=== PATIENT | female | born 1990 | race Hispanic/Latino ===

== ENCOUNTER 2018-03-17 14:44 | Inpatient (IN) | payer MEDICAID, SELFPAY ==
--- NOTE | 2018-03-17 16:40 | P.TNLD_ITS ---
Visit Information Visit Information Date of evaluation: 03/17/18 Primary OB Provider: Doris Higgins Reason for Evaluation: Yes non-stress test non-stress test reason: decreased movement Vital Signs Vital Signs: Blood pressure 122/67, pulse 88 Review of Systems Review of Systems Patient came in complaining decreased movement and vaginal bleeding. Patient denies contractions. She denies headaches, scotomata. She denies any leakage of fluid. All systems reviewed & are unremarkable except as noted in HPI and below Exam Narrative Exam Narrative: Patient's abdomen is soft, nontender. Infant is vertex. Cervical exam is 5 cm dilated. Extremities without edema and nontender Evaluation Evaluation Baseline heart rate: 130 Variability: Moderate (11-25) monitor accelerations: Present monitor decelerations: Absent Contraction Frequency (minutes): 0 Cervical dilation (cm): 5 Cervical effacement (%): 90 station: -2 Diagnosis, Plan/Disposition Final Diagnosis (1) 39 weeks gestation of : Current Visit: Yes Status: Acute Plan/Disposition Plan: NST is reactive so patient is reassured about the decreased movement. However the patient is significantly dilated despite denying contractions. She lives on [address] so is some distance from the hospital. Patient was asked to walk for several hours and come back to be checked to see if there is any change in her cervix OB Disposition: other
--- NOTE | 2018-03-17 19:31 | PM.OBHP.1 ---
OB HPI Date/Time Date of admission: 03/17/18 Date Patient Seen: 03/17/18 Time Patient Seen: 19:32 History of Present Condition Chief complaint: OBS : 1 Para: 0 Estimated Date of Delivery: 03/20/18 Estimated Gestational Age (weeks): 39 Narrative: Malgorzata Gibbs is a 27 year old female admitted in labor History of Present care: limited care (Ultrasound at 22 weeks, 2 OB appointments here), number of visits (2) and pounds weight gain (30) Dating criteria: LMP confirmed by 2nd trimester US Ultrasounds: normal mid trimester US Obstetrical complications: none Medical complications: none Preadmission Labs Blood type: O (+) positive -: Antibody screen: negative, GBS status: negative, HBsAG: negative, HIV: negative and RPR/VDLR: negative -: Rubella: immune 1 hr GTT: 85 Evaluation Evaluation Baseline heart rate: 130 Variability: Moderate (11-25) monitor accelerations: Present monitor decelerations: Absent Uterine Contraction Intensity: Mild Category of Tracing: I Cervical dilation (cm): 6 Cervical effacement (%): 75 station: -2 Review of Systems Review of Systems Patient denies any concerns. No leakage of fluid. No significant pain. All systems reviewed & are unremarkable except as noted in HPI and below Exam Vital Signs (past 8 hours): Blood pressure 122/67, pulse of 88 Narrative Exam Narrative: HEENT exam within normal limits. Lungs are clear to auscultation percussion. Heart is regular rate and rhythm no S3-S4 or murmurs. Gravid uterus. Vertex . Extremities without edema and nontender Assessment and Plan (1) 39 weeks gestation of : Current visit: Yes Status: Acute Plan: Term in labor. Anticipate vaginal delivery.
[2018-03-17 20:15] LABS: Add Manual Diff / Slide Review NO; Basophils Percent Auto 0.3 % (0-2); Eosinophils Percent Auto 0.6 % (2-4); Hematocrit 39.1 % (36-46); Hemoglobin 13.2 g/dL (12.0-16.0); Lymphocytes Percent Auto 14.7 % (25-40); Mean Corpuscular HGB Conc 33.8 % (30-36); Mean Corpuscular Hemoglobin 30.9 PG (26-34); Mean Corpuscular Volume 91.5 fL (80-100); Monocytes Percent Auto 11.4 % (3-14); Neutrophils Absolute Auto 9300 /uL (3000-5900); Platelet Count 232 X10^3/uL (150-400); Red Blood Cell Count 4.27 X10^6/uL (4.0-5.2); Red Cell Distribution Width 12.8 % (11.6-14.8); White Blood Cell Count 12.7 X10^3/uL (4.5-11.0)
[2018-03-17 21:57] VITALS: BP 125/67
[2018-03-18] MEDS: LACTATED RINGERS 1,000 ML 100 ML IV (03:52)
[2018-03-18] MEDS: LACTATED RINGERS 1,000 ML 125 ML IV (05:01)
[2018-03-18] MEDS: OXYTOCIN 10 UNIT/ML VIAL IM (09:50)
--- NOTE | 2018-03-18 10:05 | PM.OBPRVD ---
Delivery date: 03/18/18 Intrapartal events: None Induction method: none Delivery augmentation: rupture of membranes Delivery monitor: external FHT and external uterine Route of delivery: Laceration description: Vaginal - 1st Degree Delivery repair: chromic (3-0) Estimated blood loss (mL): 200 Anesthesia type: Epidural Narrative: Patient arrived on Labor and delivery in active labor. She received an epidural catheter for pain control. She was a ROM for clear fluid. She progressed to complete and pushing with reassuring heart tones. Patient had category 1 to category 2 tracing during the 1st stage of labor. During the 2nd stage of labor she had intermittent variables some late in timing. She was treated with IV fluids, O2, and position changes. The baby delivered spontaneously over an intact perineum. A nuchal cord was released. The male was placed on maternal abdomen. After the cord stopped pulsating the cord was clamped cut and cord bloods obtained. The placenta delivered spontaneously, intact, 3 vessels. There were no cervical or perineal tears. A first-degree posterior left vaginal tear was repaired with 3 0 chromic suture. Both infant mother doing well. Baby 1: gender: Male Presentation: vertex position: Right Occiput Anterior Placenta delivery description: Spontaneous cord vessel description: Nuchal Cord Plan for aftercare: Routine post vaginal delivery
--- NOTE | 2018-03-19 07:23 | PM.OBDS.1 ---
Discharge Providers Date of admission: 03/17/18 14:44 Primary care physician: Dominic Messina MD Consults: 03/18/18 12:22 Consult to Subway Conductor Routine Comment: Discharge provider: Doris Higgins MD Discharge Date: 03/19/18 Summary Date Patient Seen: 03/19/18 Time Patient Seen: 06:55 Hospital Course: patient arrived on Labor and delivery in active labor. She received an epidural catheter for pain control. She had spontaneous vaginal delivery of a male infant. She had a first-degree vaginal laceration was repaired. Both she and the baby were doing well. She is breast-feeding. She is having some difficulty but will meet with the business travel consultant prior to being discharged. Patient denies headaches. She is urinating and ambulating well. Patient's blood pressure is 126/70, pulse of 80, temperature 98.4 patient's abdomen is soft, nontender. Uterus is firm, at U nontender. Perineum is intact. Mild lochia. Extremities with out edema, nontender. Peripartum Data Infant Delivery Method: Natural Vaginal Laceration description: Vaginal - 1st Degree Procedures: Epidural catheter, vaginal delivery, repair of first-degree vaginal laceration complications: none [place] 1: Gender: Male Disposition of : home Discharge Diagnosis (1) 39 weeks gestation of : Status: Acute (2) Vaginal delivery: Status: Acute Status at Discharge Functional status at discharge: independent ambulation Overall status at discharge: patient is progressing back to baseline Time Spent with Patient Total time spent providing and/or coordinating discharge services: Less than 30 minutes Objective Labs Result Diagrams: 03/19/18 06:37 Discharge Plan Discharge Plan Patient Disposition: Home Discharge Med Rec/Prescriptions Prescriptions: New ibuprofen 600 mg Tablet 600 mg PO Q6HR PRN (Reason: Pain, Mild (1-3)) Qty: 30 RF: 0 Continue PNV #[id number] acid-omega3 1 tab PO DAILY RF: 0 Follow up/Referrals: Doris Higgins MD [Family Provider] - 1 Month Dominic Messina MD [Primary Care Provider] - Provider Discharge Instructions Diet: Regular Activity: Nothing in vagina for 4 weeks Skin/Wound/Dressing Care Report to your healthcare provider any signs of infection, such as:: chills, fever, night sweats and unusual drainage Discharge Data Primary Care Provider: Dominic Messina Attending Provider: Doris Higgins Admit Date/Time: 03/17/18 14:44
[2018-03-19 07:34] LABS: Add Manual Diff / Slide Review NO; Basophils Percent Auto 0.3 % (0-2); Eosinophils Percent Auto 1.5 % (2-4); Hematocrit 32.5 % (36-46); Mean Corpuscular HGB Conc 33.9 % (30-36); Mean Corpuscular Hemoglobin 31.1 PG (26-34); Mean Corpuscular Volume 91.8 fL (80-100); Monocytes Percent Auto 8.5 % (3-14); Neutrophils Absolute Auto 9700 /uL (3000-5900); Neutrophils Percent Auto 72.7 % (50-75); Platelet Count 168 X10^3/uL (150-400); Red Blood Cell Count 3.54 X10^6/uL (4.0-5.2); Red Cell Distribution Width 12.9 % (11.6-14.8); White Blood Cell Count 13.3 X10^3/uL (4.5-11.0)
[2018-03-19 18:00] VITALS: BP 125/67; PULSE 87; RESP 16; TEMP 36.3
== END 2018-03-19 18:00 | disposition home or self-care (01) | DRG 807 ==
PROVIDERS: Admitting Provider Specialist; Family Provider Specialist; Visit Provider Specialist
DX: O36.8130 Decreased fetal movements, third trimester, not applicable or unspecified (principal); Z37.0 Single live birth; Z3A.39 39 weeks gestation of pregnancy; O70.0 First degree perineal laceration during delivery; O69.1XX0 Labor and delivery complicated by cord around neck, with compression, not applicable or unspecified
CPT/HCPCS: 01967; 36415; 59050; 59409; 85025; 86850; 86900; 86901; G0379; J2590; J3010

== ENCOUNTER → 2022-05-23 08:42 | Outpatient (CLI) | payer MEDICAID, SELFPAY ==
--- NOTE | 2022-05-23 08:42 | DI.US.S_ITS ---
PROCEDURE: US OB LIMITED INDICATIONS: LARGE FOR GESTATIONAL AGE OUTSIDE/PRIOR DATING DATA: Last menstrual period (LMP): Unknown. LMP-based estimated date of delivery (MIKE): Unknown. First dating scan (date and location): 05/23/2022 Estimated date of delivery (MIKE) from first dating scan: 06/24/2022 The calculations are made using the working MIKE of 06/30/2022 TECHNIQUE: Real-time scanning was performed of the fetus, with image documentation and biometric measurements. Biophysical profile was also obtained. Endovaginal scanning: Not indicated COMPARISON: Merged With [facility] Ultrasound, US, US OB > 14 WEEKS COMPLETE ANATOMY, 02/13/2022, 8:58. FINDINGS: General: A single living intrauterine gestation is present. Presentation: Vertex. Placenta: Placental position is posterior. No obvious previa. Amniotic fluid index: 19.0 cm, normal range is 5-24 cm. Single deepest vertical pocket is 7.4 cm. heart rate: 130 beats per minute. Maternal cervical canal: Not well seen. biometrics: Biparietal diameter: 8.9 cm, 35 weeks, 5 days. Head circumference: 32.1 cm, 36 weeks, 1 day. Abdominal circumference: 31.5 cm, 35 weeks, 3 days. Femur length: 6.7 cm, 34 weeks, 3 days. Clinically estimated gestational age: 34 weeks, 4 days. Composite gestational age from present scan: 35 weeks, 3 days. Estimated weight and percentile: 2630 g, 66%. chest, stomach, bilateral kidneys and urinary bladder are visualized and are within normal limits. Cord insertion is approximately 2.1 cm from superior edge of placenta. IMPRESSION: 1. Single live intrauterine gestation with fetus in vertex presentation. heart rate is 130 beats per minute. Normal amount of amniotic fluid. Normal growth. Estimated weight is at 66%. 2. Possible marginal cord insertion as above suggest clinical correlation and sonographic follow-up. We strive to produce accurate, complete, and clear reports of imaging services. To assist us in improving patient care, this report was composed using standard report templates and voice recognition software. Therefore, it may contain abnormal punctuation, insertions and/or omissions. Occasional wrong-word or sound-alike substitutions may occur. Though we review the report and make efforts to correct it, we do recommend that the report be read carefully in proper context to recognize any text inaccuracies. Dictated by: Tuan Hawk M.D. on 05/23/2022 at 17:35 Approved by: Tuan Hawk M.D. on 05/23/2022 at 17:39
== END ==
PROVIDERS: Family Provider Specialist; Referring Provider Obstetrics & Gynecology; Visit Provider Obstetrics & Gynecology
DX: Z36.88 Encounter for antenatal screening for fetal macrosomia (principal); Z3A.35 35 weeks gestation of pregnancy
CPT/HCPCS: 76815

== ENCOUNTER 2022-05-24 11:45 | Outpatient (CLI) | payer MEDICAID, SELFPAY ==
[2022-05-24 12:21] LABS: Appearance Urine UA CLEAR; Bilirubin Urine UA NEGATIVE (NEGATIVE); Color Urine UA YELLOW; Glucose Urine UA TRACE g/dL (Negative); Ketones Urine UA TRACE (NEGATIVE); Leukocyte Esterase Urine UA TRACE (NEGATIVE); Nitrite Urine UA NEGATIVE (Negative); Occult Blood Urine UA NEGATIVE (Negative); Protein Urine UA TRACE (Negative)
[2022-05-24 12:30] LABS: RBC Urine 0-1/HPF (0-5/HPF)
[2022-05-24 12:31] LABS: Bacteria Urine Many (>30); Culture Indicated Urine Specimen Cultured; Squamous Epithelial Cell Urine 5-10 /HPF (0-5/HPF); WBC Urine 5-10/HPF (0-5/HPF)
--- NOTE | 2022-05-26 20:54 | PM.OBTRLD ---
Visit Information Visit Information Date of evaluation: 05/24/22 Primary OB Provider: Ghulam Wakefield On-call OB Provider: Xiomara Quevedo Reason for Evaluation: Yes pre-term labor Vital Signs Vital Signs: Patient is a 31-year-old 2 para 1 at 34-,5/7 weeks gestation who presented with cramping since 10/22 this morning. It goes to her low back. She says it was about every 5 minutes. Contractions have stopped since she is been here. Patient lives on [facility] Medical History (Updated 05/24/22 @ 13:02 by Ghulam Wakefield MD) 39 weeks gestation of Vaginal delivery Surgical History (Updated 04/23/22 @ 11:21 by Coretta Harding RN) [place] teeth extracted Social History marital status: unmarried,single number of children: 1 household members: family (uncle) and children lives independently: Yes caregiver/support person: Yes [facility]: [facility] pets and animals: No education level: college (zahra's degree in [place]) occupational status: unemployed current occupational exposures/hazards: No special daniel needs: No travel history: over 6 months ago seatbelt use: always water heater temp set < 120 deg: Yes working smoke detector in home: Yes fire extinguisher in home: Yes carbon monox detector in home: Yes firearms in home: No do you feel safe at home: Yes Smoking Status: Never smoker second hand exposure: No alcohol intake: former (occasionally when not ) substance use type: does not use during the past year weight has: remained stable (prior to ) well-balanced diet: rarely or never daily servings fruits/ve-1 (1-2) caffeine: Yes (Well under 200mg limit) Type(s) of exercise: walking Evaluation Evaluation Baseline heart rate: 135 Variability: Moderate (11-25) monitor accelerations: Present Monitor Decelerations: Absent Contraction Frequency (minutes): 0 Status: Category l Diagnosis, Plan/Disposition Plan/Disposition Plan: Assessment: 31-year-old 2 para 1 at 34-,5/7 weeks gestation No labor Urine consistent with UTI Plan: Discharge to home F/U as scheduled Amoxicillin 500 mg t.i.d. for 5 days OB Disposition: home
== END 2022-05-24 14:20 | disposition home or self-care (01) ==
LOC: LABOR 14:30 → OB 05-27 15:41
PROVIDERS: Obstetrics & Gynecology; Family Provider Specialist; Referring Provider Obstetrics & Gynecology; Visit Provider Obstetrics & Gynecology
DX: O47.03 False labor before 37 completed weeks of gestation, third trimester (principal); Z3A.34 34 weeks gestation of pregnancy
CPT/HCPCS: 59025; 81001; 87086; G0378; G0379

== ENCOUNTER → 2022-06-06 11:50 | Outpatient (CLI) | payer MEDICAID, SELFPAY ==
[2022-06-07 15:19] LABS: Strep Grp B PCR POS for Grp B Strep
== END ==
PROVIDERS: Family Provider Specialist; Visit Provider Obstetrics & Gynecology
DX: Z34.83 Encounter for supervision of other normal pregnancy, third trimester (principal); Z3A.36 36 weeks gestation of pregnancy
CPT/HCPCS: 87653

== ENCOUNTER 2022-06-19 11:50 | Outpatient (CLI) | payer MEDICAID, SELFPAY | END 2022-06-19 13:06 | disposition home or self-care (01) | LOC: LABOR 12:31 → OB 06-21 13:53 | PROVIDERS: Family Provider Specialist; Referring Provider Obstetrics & Gynecology; Visit Provider Obstetrics & Gynecology | DX: O36.8130 Decreased fetal movements, third trimester, not applicable or unspecified (principal); Z3A.38 38 weeks gestation of pregnancy | CPT/HCPCS: 59025; 59050; G0378; G0379 ==

== ENCOUNTER 2022-06-24 01:36 | Inpatient (IN) | payer MEDICAID, SELFPAY ==
--- NOTE | 2022-06-24 | PATH_ITS ---
[facility] Accession Number: [id number] No. of containers..01 Tissue . 01 Material submitted: . fallopian tube - BILATERAL FALLOPIAN TUBES . 01 Diagnosis: A. Bilateral Fallopian Tubes, Bilateral Salpingectomy: Cross-sections of fallopian tubes with focal acute salpingitis. Negative for dysplasia and malignancy. MRV 06/28/2022 1600 Local . 01 Electronically signed: . Dawna Tena MD, Pathologist NPI- [id number] . 01 Gross description: . The specimen is received in formalin labeled with the patient's name, , and bilateral fallopian tubes, and consists of two unoriented fimbriated fallopian tubes measuring 5.7 x 0.9 cm and 4.8 x 0.9 cm, respectively. The longer fallopian tube has congested smooth serosa with no cystic structures identified. Sectioning reveals an unremarkable stellate lumen. The shorter fallopian tube has congested smooth serosa with no cystic structures identified. Sectioning reveals an unremarkable stellate lumen. Accounts Receivable Executive sections to include one-half of the bisected fimbriae and cross sections are submitted as follows: A1: Longer fallopian tube. A2: [place] fallopian tube. ([id number]) /FRR 06/26/2022 0345 Local . 01 Pathologist provided ICD-10: Z30.2 . 01 CPT . 971384 Specimen Comment: A courtesy copy of this report has been sent to [phone] Performed at: 01 [facility] [address] [place] [address] [address], [place], [place] [id number] MD Silverio Keenan MD Phone: [phone]
--- NOTE | 2022-06-24 03:38 | PM.OBPRVD ---
Labor & Delivery Delivery date: 06/24/22 Intrapartal Events: Precipitous Labor < 3 hours Cervical ripening method: none Induction method: none Delivery monitor: external FHT and external uterine Route of delivery: Episiotomy description: None L&D Laceration Description: None Estimated blood loss (mL): 150 Anesthesia Type: None Narrative: Called by RN for admission of patient from [facility], arrived by air, with cervical exam of 9cm with rectal pressure. CNM arrived immediately s/p NSVB with a single tight nuchal cord. Stable on warmer with 3 RNs in the room and automatic vulcanizing lead operator on iPad. Cord blood collected. Gentle cord traction and a single maternal push led to spontaneous, Schultze delivery of an apparently intact placenta, membranes and 3VC. Fundus immediately firm and bleeding minimal. Inspection of vagina and perineum reveal no lacerations. EBL 150mL. Both mother and baby stable and skin to skin as I left the room. Review of FHR tracing (total of 10 minutes prior to ) with poor continuity of tracing FHR 120 prior to . Baby 1: Infant gender: Male Presentation: vertex Placenta delivery description: Spontaneous Cord Vessel Description: 3 Vessels, Nuchal Cord and Tight score (1 min): 7 score (5 min): 8 Plan for aftercare: Routine care
--- NOTE | 2022-06-24 03:58 | P.HPOB_ITS ---
OB HPI Date/Time Date of admission: 06/24/22 Date Patient Seen: 06/24/22 Time Patient Seen: 03:20 History of Present Condition Chief complaint: labor MIKE Calculator Estimated Delivery Date Method Current WG Current Estimate 06/30/22 Ultrasound #1 39w 1d Other Estimates 06/22/22 LMP (Certain) 40w 2d Estimated Gestational Age (weeks): 39.1 : 2 Para: 2 care: good care, initiated at week # (6), number of visits (12) and pounds weight gain (25) Dating criteria OB: based on 1st trimester US only Ultrasounds: normal mid trimester US Obstetrical complications: none Medical complications OB: none Narrative: 32YO G2 Now P2002 @ 39wks1 day by early US arrived at hospital, by fixed wing air from [place]. Spontaneous ROM occurred at 1245 and transport was initiated. Cervical exam upon arrival was 9cm. occurred at 0317, shortly after arrival on unit. GBS was positive and no treatment was given d/t precipitous timeline of . See Vaginal note for details. Mother and baby now stable and skin to skin. Partner en route in am from [place]. Preadmission Labs Last OB Lab Results: Blood Type O Positive 03/17/18 20:10 Antibody Screen Negative 03/17/18 20:10 Hematocrit 32.5 % (36-46) L 03/19/18 06:37 Hemoglobin 11.0 g/dL (12.0-16.0) L 03/19/18 06:37 Group B Streptococcus (PCR) Pos for grp b strep H 06/06/22 11:5 0 External Labs Blood type OB HPI: O (+) positive -: Antibody screen: negative, HBsAG: negative, HIV: negative, RPR/VDLR: negative, Chlamydia screen: negative, Gonorrhea screen: negative and GBS status: positive -: Rubella: immune and Varicella: immune HCAB: negative Genetic Screens: Cell-free DNA: Normal Glucose Tolerance Testin hr (125) Narrative: Labs reviewed from [facility] scanned records Prior (ies) Past Pregnancies Del. Date GA/Weeks Labor Lgth Wt Sex Route Outcome Anesthesia Place Delv Breastfeed Preg Comp Name 03/18/18 41 14 3.402 kg Male vaginal live - full term IH 2 months mostly pumping none Adam Acosta [facility] Medical History (Updated 06/19/22 @ 11:51 by Ghulam Wakefield MD) 39 weeks gestation of Vaginal delivery Surgical History (Updated 04/23/22 @ 11:21 by Coretta Harding, JAYY) [place] teeth extracted Social History marital status: unmarried,single number of children: 1 household members: family (uncle) and children lives independently: Yes caregiver/support person: Yes [facility] pets and animals: No education level: college (zahra's degree in [place]) occupational status: unemployed current occupational exposures/hazards: No special daniel needs: No travel history: over 6 months ago seatbelt use: always water heater temp set < 120 deg: Yes working smoke detector in home: Yes fire extinguisher in home: Yes carbon monox detector in home: Yes firearms in home: No do you feel safe at home: Yes Smoking Status: Never smoker second hand exposure: No alcohol intake: former (occasionally when not ) substance use type: does not use during the past year weight has: remained stable (prior to ) well-balanced diet: rarely or never daily servings fruits/ve-1 (1-2) caffeine: Yes (Well under 200mg limit) Type(s) of exercise: walking Meds Home Medications and Allergies Home Medications Medication Instructions Recorded Confirmed Type PNV #[id number]-phtcy acid-omega3 1 tab PO DAILY 03/17/18 06/24/22 History Allergies Allergy/AdvReac Type Severity Reaction Status Date / Time No Known Drug Allergies Allergy Verified 06/24/22 04:16 OB Exam Vital signs Blood Pressure: 132/60 Pulse Rate: 72 Temperature: 37.1 F Other: Vaginal and perineum intact, scant vaginal bleeding. EBL 150mL. Assessment and Plan Assessment and Plan Assessment and Plan narrative: A: Precipitous vaginal GBS POSITIVE, untreated ROM x <3 hours, clear fluid Desires BTL P: Admit for routine care. CBC and COVID now. NPO for procedure in am. Will notify @ 0600. Anticipate d/c to home in 24-36 hours. Time Spent with Patient Total time spent with greater than 50% in coordination of care (as documented) at patient's floor/unit and/or counseling patient:: Greater than 35 minutes
[2022-06-24 04:10] VITALS: BP 132/60; PULSE 72; TEMP 2.8; TEMP 37.1
[2022-06-24 04:13] VITALS: BP 132/60
[2022-06-24] MEDS: OXYTOCIN PREMIX 30 UNIT/500 ML PLAST..BAG 200 UNIT IV (04:37)
[2022-06-24] MEDS: KETOROLAC 30 MG/ML VIAL IV (04:38)
[2022-06-24 04:55] LABS: Add Manual Diff / Slide Review NO; Basophils Absolute Auto 100 /uL (0-100); Basophils Percent Auto 0.9 % (0-2); Eosinophils Absolute Auto 100 /uL (0-450); Eosinophils Percent Auto 0.6 % (2-4); Hematocrit 39.3 % (36-46); Hemoglobin 13.3 g/dL (12.0-16.0); Lymphocytes Absolute Auto 1200 /uL (1100-4500); Lymphocytes Percent Auto 6.9 % (25-40); Mean Corpuscular HGB Conc 33.9 % (30-36); Mean Corpuscular Hemoglobin 29.9 PG (26-34); Monocytes Absolute Auto 1000 /uL (0-900); Monocytes Percent Auto 5.9 % (3-14); Neutrophils Absolute Auto 14600 /uL (1500-7000); Neutrophils Percent Auto 85.7 % (50-75); Platelet Count 232 X10^3/uL (150-400); Red Blood Cell Count 4.46 X10^6/uL (4.0-5.2); Red Cell Distribution Width 13.9 % (11.6-14.8)
[2022-06-24 05:37] LABS: COVID19 -Nasal RAPID Negative (Negative)
--- NOTE | 2022-06-24 09:01 | PM.PREOP ---
Pre-operative Note COVID-19 Criteria for continued procedure: Non-surgical alternatives not available or appropriate per current SOC Interval Note History & Physical reviewed/Exam performed by Physician: Yes Changes to H&P: No H&P completed within 30 days and has changed as indicated here:: 06/24/22
--- NOTE | 2022-06-24 09:30 | SUR.OPER ---
Supine on padded OR bed, head on pillow, arms secured on padded arm boards at <90 degrees abduction, legs uncrossed, safety belt at thigh, tape over blanket over lower legs.
[2022-06-24] MEDS: BUPIVACAINE 0.5% W/ EPI (PF) 30 ML VIAL INJ (09:37)
--- NOTE | 2022-06-24 09:57 | PM.GYNOP.1 ---
Operative Date/Time/Diagnoses Date of procedure: 06/24/22 Time of procedure: 09:57 Pre-op diagnosis: Multiparity Desires permanent sterilization Post-op diagnosis: same Procedure & Clinicians Procedure: Procedures Operation Date: 06/24/22 17:30 Actual Procedure Side Surgeon p Post Bilateral Tubal Ligation Bilateral Xiomara Quevedo MD Indications: Multiparity Desires permanent sterilization Surgeon: Xiomara Quevedo Microgrinder Operator: Crys Marie Anesthesia Type: General and Local Operative Notes Findings: Fundus at U -1 Normal tubes and ovaries Closure Type: primary Specimen(s): left tube and right tube Estimated blood loss (mL): 2 Blood products transfused: none Procedure in detail: After informed consent was obtained through a sign language interpreter, the patient was taken to the operating room where she was placed in the dorsal supine position. After adequate general endotracheal anesthesia was achieved, she was prepped and draped in the usual sterile fashion. A time-out was performed. Allis clamps were placed 2.5 cm apart just below the umbilical fold. 8 cc of 0.5% Marcaine with epinephrine were injected. An incision was made between the 2 Allis clamps and carried down to the underlying fascia. The fascia was nicked in the midline and the incision extended bilaterally with the Rutledge scissors. The peritoneum was grasped between 2 hemostats, and entered sharply with the Metzenbaum scissors. Retractors were placed into the incision. The left tube was located and brought to the incision with a [place]. It was carried out to the fimbriated end. Using the power seal, the mesosalpinx was cauterized and cut all the way down to the cornua of the uterus. The tube was amputated at the cornua. Hemostasis was achieved. This was repeated on the patient's right tube. Hemostasis was achieved. The tubes were sent to pathology. The fascia was reapproximated using 0 Vicryl in a running fashion. Two simple interrupted sutures with 3-0 Vicryl were placed in the subcutaneous layer. The skin was closed with 4-0 Monocryl in a subcuticular fashion. Steri-Strips and Allevyn dressing were placed. Sponge, lap, and instrument counts were correct x2. The patient tolerated the procedure well, and was taken to PACU in stable condition. Complications: none Post-operative Condition: stable Disposition: PACU Plan for aftercare: To the center after recovery
[2022-06-24 10:03] VITALS: BP 112/48; PULSE 64; RESP 10; TEMP 36.4; O2SAT 98
[2022-06-24 10:07] VITALS: BP 121/58; PULSE 63; RESP 11; O2SAT 96
[2022-06-24 10:13] VITALS: BP 113/56; PULSE 62; RESP 13; O2SAT 95
[2022-06-24 10:18] VITALS: BP 114/60; PULSE 63; RESP 14; TEMP 36.4; O2SAT 95
[2022-06-25] MEDS: IBUPROFEN 600 MG TABLET PO ×2 (00:54→09:43)
[2022-06-25] MEDS: ACETAMINOPHEN 325 MG TABLET 650 MG PO ×2 (06:10→12:02)
[2022-06-25 10:49] VITALS: BP 118/58; PULSE 64; RESP 16; TEMP 36.8
--- NOTE | 2022-06-25 13:03 | P.DS_ITS ---
Discharge Providers Provider Date of admission: 06/24/22 01:36 Discharge Date: 06/25/22 Primary care physician: Doctor Anna MD Consults: 06/24/22 03:09 Consult to Anesthesiology Urgent Comment: Consulting Provider: John Razo Reason for consultation: labor 06/25/22 03:36 Consult to Athletic Coordinator Routine Comment: Discharge provider: Ghulam Wakefield MD Summary Hospital Course Date Patient Seen: 06/25/22 Time Patient Seen: 13:04 Diagnoses: Intrauterine gestation, 39+1 weeks EGA, delivered by spontaneous vaginal Request for sterilization Hospital Course: Elena presented in advanced active phase labor on the morning 06/24/2022 delivered shortly after presenting via spontaneous vaginal attended by Randall Adrian CNM. The delivery was so rapid that IV antibiotics for her positive strep could not be administer prior to delivery. Later on the day of admission, 06/24/2022, the patient underwent bilateral salpingectomy for elective sterilization performed by Dr. Debo Quevedo, and details of the procedure well summarized on her operative note of that date. Following the procedure the patient has done extremely well with prompt return of bowel and bladder function, she is ambulating independently, tolerating regular diet, and her pain is well controlled with oral pain medications. She will be discharged at this time to home in an afebrile normotensive condition after counseling regarding precautionary symptoms limitations of activity, medications, and plans for follow-up which will be in 4 weeks or as needed. Medications at discharge will include continuation of her vitamins daily and ibuprofen 600 mg p.o. q.6 hours as needed pain dispensed 30 with 2 refills. Peripartum Data Infant Delivery Method: Natural Vaginal Laceration Description: None Episiotomy description: None Procedures: Spontaneous vaginal delivery bilateral salpingectomy complications: none 1: Gender: Male Disposition of : home Status at Discharge Cognitive/behavioral status at discharge: oriented Functional status at discharge: independent ambulation Overall status at discharge: patient is progressing back to baseline Time Spent with Patient Time attestation: Total time spent providing and/or coordinating discharge services: Time spent: Less than 30 minutes Objective Labs 06/24/22 04:40 Exam Vital Signs (past 8 hours): - 06/25/22 10:49 Temperature 98.3 F Pulse Rate 64 Respiratory Rate 16 Blood Pressure 118/58 L Oxygen Delivery Method Room Air Const General: cooperative and comfortable Nutritional Appearance: average body habitus Orientation: alert and oriented x3 HENMT Head: normal to inspection, atraumatic and abrasion Ears: hearing grossly normal bilaterally Face and sinus: face symmetric Eyes General: appearance normal, both eyes and all related structures Conjunctivae: conjunctivae normal Sclera: sclerae normal EOM: EOM intact bilaterally Neck Neck: normal visual inspection Resp Effort & Inspection: normal respiratory effort and able to speak in complete sentences GI Inspection: normal to inspection and incision (Surgical dressing clean and dry) Palpation: soft, no hepatosplenomegaly and tender (Mild, diffuse postsurgical tenderness) External Female Exam: other (No significant bleeding noted) Extrem General: no calf tenderness Psych Appearance: grossly normal Mental Status: mental status grossly normal Speech and Movement: speech and movement normal Mood: congruent mood Affect: normal affect Attitude: cooperative Thought Process: normal Thought Content: normal Judgment: judgment good Discharge Plan Discharge Plan Patient Disposition: Home Provider Discharge Comment: Please review the written instructions you received when you were discharged from the hospital. Your follow-up appointment will be scheduled for 4 weeks following your delivery and I look forward to seeing you then. If however in the meanwhile you have any issues, concerns, or questions, please contact me either through the office phone at [phone], or via the patient. Discharge orders & Medications Prescriptions: New ibuprofen 600 mg Tablet 600 mg PO Q6HR PRN (Reason: Pain, Mild (1-3)) Qty: 30 2RF Continued PNV #[id number] 1 tab PO DAILY Follow up/Referrals: Ghualm Wakefield MD [Physician] - ( appt: please follow up w/ Dr. Wakefield on @ 11:15am) Discharge Health Status Multidrug resistant organism: No MDRO Diet/Activity/Treatments Diet: Diet as Tolerated Activity: As tolerated Other treatments: [id number] Tylenol may be used for additional pain relief. [id number]-[id number] stool softeners and/or MiraLax may be used for constipation as needed. Skin/Wound/Dressing Care Report to your healthcare provider any signs of infection, such as:: chills, fever, increased pain, unusual drainage and unusual redness Dressing: Dressing may be removed on the morning 06/27/2022 Visit Report/Discharge Packet Instructions: DI for Tubal Ligation, DI for and Nipple Soreness Stand Alone Forms: Discharge: Care Discharge Data Primary Care Provider: Miscellaneous,Doctor
== END 2022-06-25 13:48 | disposition home or self-care (01) | DRG 798 ==
PROVIDERS: Obstetrics & Gynecology; Admitting Provider Nurse Practitioner Obstetrics & Gynecology; Family Provider Specialist; Referring Provider Nurse Practitioner Obstetrics & Gynecology; Visit Provider Nurse Practitioner Obstetrics & Gynecology
PROC: 0UT70ZZ Resection of Bilateral Fallopian Tubes, Open Approach (ICD-10-PCS; CPT 58605; principal; 2022-06-24 17:30)
DX: O62.3 Precipitate labor (principal); Z37.0 Single live birth; O99.824 Streptococcus B carrier state complicating childbirth; Z3A.39 39 weeks gestation of pregnancy; Z30.2 Encounter for sterilization; Z20.822 Contact with and (suspected) exposure to COVID-19
CPT/HCPCS: 36415; 58605; 59050; 85025; 87635; C9803; G0379; J1100; J1885; J2405; J2590; J2704; J3010